=== PATIENT | male | born 1955 | race Caucasian/White ===

== ENCOUNTER → 2018-02-01 | Outpatient (CLI) | payer SELFPAY ==
[2018-02-01 14:32] LABS: ALT/SGPT 39 U/L (12-78); AST/SGOT 16 U/L (7-37); CHOLESTEROL LEVEL 138 MG/DL (<200); CHOLESTEROL RISK RATIO 2.875 (<5); HDL CHOLESTEROL 48 MG/DL (>40); LDL CHOLESTEROL 60.6 MG/DL (<100); NON-HDL-C 90 MG/DL; TRIGLYCERIDES LEVEL 147 MG/DL (<150)
== END ==
LOC: M WUC 09:44
DX: E78.9 Disorder of lipoprotein metabolism, unspecified (principal)
CPT/HCPCS: 84460